=== PATIENT | female | born 1995 | race Caucasian/White ===

== ENCOUNTER 2016-10-25 13:35 | Outpatient (CLI) ==
[2016-10-25 14:17] LABS: BILIRUBIN,URINE Negative (NEGATIVE); KETONES,URINE Negative (NEGATIVE); LEUKOCYTE ESTERASE ,URINE Trace (NEGATIVE); NITRITE,URINE Negative (NEGATIVE); PROTEIN,URINE Negative (NEGATIVE); URINE, BLOOD Negative (NEGATIVE)
[2016-10-25 14:18] LABS: ADD URINE MICROSCOPIC YES
[2016-10-25 14:27] LABS: BACTERIA,URINE 1+ (NOT PRESENT)
== END 2016-10-25 13:36 | disposition home or self-care (01) ==
LOC: LAB 13:35
PROVIDERS: ATTEND Nurse Practitioner Family
DX: R31.9 Hematuria, unspecified (principal); R30.9 Painful micturition, unspecified
CPT/HCPCS: 81001; 87086; 87186; 87800

== ENCOUNTER 2016-12-05 13:20 | Outpatient (CLI) | END 2016-12-05 13:21 | disposition home or self-care (01) | LOC: LAB 13:20 | PROVIDERS: ATTEND Nurse Practitioner Family | DX: J02.9 Acute pharyngitis, unspecified (principal) | CPT/HCPCS: 87880 ==

== ENCOUNTER 2018-08-21 09:12 | Outpatient (CLI) | END 2018-08-21 09:13 | disposition home or self-care (01) | LOC: RHC-LAB 09:12 | PROVIDERS: ATTEND Nurse Practitioner Family | DX: R42 Dizziness and giddiness (principal); R25.1 Tremor, unspecified | CPT/HCPCS: 36415; 80053; 80061; 84443; 85025 ==

== ENCOUNTER 2018-09-11 09:24 | Outpatient (CLI) | END 2018-09-11 09:25 | disposition home or self-care (01) | LOC: RHC-LAB 09:24 | PROVIDERS: ATTEND Nurse Practitioner Family | DX: R79.89 Other specified abnormal findings of blood chemistry (principal) | CPT/HCPCS: 36415; 84436; 84439; 84443; 86376; 86800 ==

== ENCOUNTER 2018-12-30 15:53 | Emergency (ER) ==
[2018-12-30 15:58] VITALS: BP 127/81; TEMP 98.4; BMI 32.3
--- NOTE | 2018-12-30 16:22 | ED.PDOC ---
General ED Provider: Dr. ESTRELLA BAUER Chief Complaint: Respiratory Complaint Stated Complaint: cough congestion Time Seen by Physician: 16:00 Mode of Arrival: Walk-In Information Source: Patient Exam Limitations: No limitations Primary Care Provider: TAHMINA GARCIA Nursing and Triage Documentation Reviewed and Agree: Yes Does patient meet sepsis criteria?: No If yes, has appropriate treatment been initiated?: No System Inflammatory Response Syndrome: Not Applicable Sepsis Protocol: For patient's 13 years and over: Temp is 96.8 and below OR 101 and greater Pulse >90 BPM Resp >20/minute Acutely Altered Mental Status Are patient's symptoms suggestive of a new infection, such as: -Pneumonia -Skin, Soft Tissue -Endocarditis -UTI -Bone, Joint Infection -Implantable Device -Acute Abdominal Infection -Wound Infection -Meningitis -Blood Stream Catheter Infection -Unknown Respiratory Complaint Exam - Respiratory Complaint/Exam Symptoms Are: Resolved Timing: Intermittent Initial Severity: Moderate Location: Nose, Throat, Chest Character: Reports: Non-productive cough, Dry cough Aggravating: Reports: URI Alleviating: Reports: None Associated Signs and Symptoms: Reports: URI, Nasal congestion. Denies: Rapid breathing, Dyspnea, Fever, Chills, Chest pain, Pleuritic chest pain, Wheezing, Hemoptysis, Dizziness, Calf pain, Calf swelling, Edema, Hoarseness, Sinus discomfort, Vomiting, Sore throat, Weight loss, Decreased oral intake, Increased thirst, Increased appetite, Increased urination History of Healthcare-Acquired Pneumonia: No Related Surgical History: Reports: None Pulmonary Embolism Risk Factors: None Cardiac Risk Factors: Reports: None Pseudomonas Risk Factors: Reports: None Tuberculosis Risk Factors: Reports: None Status Asthmaticus Risk Factors: Reports: None Home Oxygen Use: No Recent Stress Test: No Recent Echo/LV Function: No Current Antibiotic Use: No Current Asthma Medication Use: No Respiratory Distress: None Inadequate Respiratory Effort: No Dysphagia Present: No JVD Present: No Accessory Muscle Use: No Retractions: Not Present Diminished Breath Sounds: No Sinus Tenderness: None Grunting Respirations: No Kussmaul Respirations: No Differential Diagnoses: Bronchitis Review of Systems - Review Of Systems Constitutional: Reports: No symptoms Eyes: Reports: No symptoms Ears, Nose, Mouth, Throat: Reports: No symptoms Respiratory: Reports: Cough Cardiac: Reports: No symptoms GI: Reports: No symptoms : Reports: No symptoms Musculoskeletal: Reports: No symptoms Skin: Reports: No symptoms Neurological: Reports: No symptoms Endocrine: Reports: No symptoms Hematologic/Lymphatic: Reports: No symptoms All Other Systems: Reviewed and Negative Past Medical History - Past Medical History Previously Healthy: Yes Endocrine: Reports: None Cardiovascular: Reports: None Respiratory: Reports: None Hematological: Reports: None Gastrointestinal: Reports: None Genitourinary: Reports: None Neuro/Psych: Reports: Anxiety, Depression Musculoskeletal: Reports: None Cancer: Reports: None Last Menstrual Period: last - Surgical History General Surgical History: Reports: None - Family History Family History: Reports: None - Social History Smoking Status: Never smoker Hx Substance Use: No Physical Exam - Physical Exam Appearance: Well-appearing, No pain distress, Well-nourished Eyes: SHERI, EOMI, Conjunctiva clear ENT: Ears normal, Nose normal, Oropharynx normal Respiratory: Airway patent, Breath sounds clear, Breath sounds equal, Respirations nonlabored Cardiovascular: RRR, Pulses normal, No rub, No murmur GI/: Soft, Nontender, No masses, Bowel sounds normal, No Organomegaly Musculoskeletal: Normal strength, ROM intact, No edema, No calf tenderness Skin: Warm, Dry, Normal color Neurological: Sensation intact, Motor intact, Reflexes intact, Cranial nerves intact, Alert, Oriented Psychiatric: Affect appropriate, Mood appropriate Critical Care Note - Critical Care Note Total Time (mins): 0 Course - Course Vital Signs: Temp Pulse Resp BP Pulse Ox 12/30/18 15:53 98.4 F 67 20 127/81 98 Departure - Departure Time of Disposition: 16:21 Disposition: HOME SELF-CARE Discharge Problem: Cough in adult Instructions: Chronic Cough (ED) Condition: Good Pt referred to PMD for follow-up: Yes IPMP verified?: No Additional Instructions: Please call your Family Physician as soon as possible to schedule a follow-up appointment. Prescriptions: Hydrocodone/Chlorphen Polis [Tussionex] 5 ml PO Q12H 5 Days disp.syrin Prednisone 40 mg PO DAILYWM #5 tablet Allergies/Adverse Reactions: Allergies Penicillins Allergy (Severe, Verified 12/30/18 15:58) Anaphylaxis Sulfa (Sulfonamide Antibiotics) Allergy (Severe, Verified 12/30/18 15:58) Anaphylaxis Latex, Natural Rubber Allergy (Intermediate, Verified 12/30/18 15:58) Rash sumatriptan [From Imitrex] Allergy (Verified 12/30/18 15:58) burning sumatriptan succinate [From Imitrex] Allergy (Verified 12/30/18 15:58) burning Home Medications: Ambulatory Orders Ibuprofen 800 mg PO PRN 06/14/18 Hydrocodone/Chlorphen Polis [Tussionex] 5 ml PO Q12H 5 Days disp.syrin Prednisone 40 mg PO DAILYWM #5 tablet 12/30/18
== END 2018-12-30 16:24 | disposition home or self-care (01) ==
LOC: ED 15:53
DX: R05 Cough (principal)
CPT/HCPCS: 99282

== ENCOUNTER 2019-01-14 19:27 | Emergency (ER) | payer MEDICAID ==
[2019-01-14 19:34] VITALS: BP 122/69; TEMP 99.1; BMI 33.0
--- NOTE | 2019-01-14 20:02 | ED.PDOC ---
General ED Provider: Dr. SHOAIB MILLIGAN Chief Complaint: Vaginal Discharge/Swelling Stated Complaint: Patient presents to the ER with Vaginal discharge that is clear with odor and itching, nausea and abd cramps. Last menstral period was about one month ago. Not sure if she is . States she is in a monogamous relationship. Time Seen by Physician: 19:59 Mode of Arrival: Walk-In Information Source: Patient Primary Care Provider: TAHMINA GARCIA Nursing and Triage Documentation Reviewed and Agree: Yes Does patient meet sepsis criteria?: No System Inflammatory Response Syndrome: Not Applicable Sepsis Protocol: For patient's 13 years and over: Temp is 96.8 and below OR 101 and greater Pulse >90 BPM Resp >20/minute Acutely Altered Mental Status Are patient's symptoms suggestive of a new infection, such as: -Pneumonia -Skin, Soft Tissue -Endocarditis -UTI -Bone, Joint Infection -Implantable Device -Acute Abdominal Infection -Wound Infection -Meningitis -Blood Stream Catheter Infection -Unknown Complaint Exam - Complaint/Exam Patient Complains of: Reports: Vaginal discharge, Pain, Dysuria Onset/Duration: 2 days Symptoms Are: Still present Timing: Constant Initial Severity: Moderate Current Severity: Moderate Location of Pain: Reports: Suprapubic Character: Reports: Cramping Alleviating: Reports: None Associated Signs and Symptoms: Reports: Dysuria, Bubble bath use, Vaginal discharge. Denies: Diaphoresis, Back pain, Fever, Hematuria, Constipation, Blood in stool, Rectal pain, Appetite change, Nausea, Vomiting, Decreased urine output, Increased urine frequency, Increased thirst, Decreased activity, Lethargy, Abdominal Pain, Vaginal bleeding, Genital swelling, Genital blisters, Retained foreign body Related History: Reports: Similar episode Ectopic Risk Factors: Reports: None Ovarian Torsion Risk Factors: Reports: None Surgical Obstruction Risk Factors: Reports: None RH Status: Unknown Related Surgical History: Reports: None Abdominal Findings: Present: Other (Mild suprapubic tendeness ). Absent: [place] tender Differential Diagnoses: Cervicitis, STD, UTI Review of Systems - Review Of Systems Constitutional: Reports: No symptoms Eyes: Reports: No symptoms Ears, Nose, Mouth, Throat: Reports: No symptoms Respiratory: Reports: No symptoms Cardiac: Reports: No symptoms GI: Reports: Nausea, Poor appetite, Vomiting : Reports: Dysuria, Discharge, Pain, Urgency Musculoskeletal: Reports: No symptoms Skin: Reports: No symptoms Neurological: Reports: Anxiety Endocrine: Reports: No symptoms Hematologic/Lymphatic: Reports: No symptoms All Other Systems: Reviewed and Negative Past Medical History - Past Medical History Previously Healthy: Yes Endocrine: Reports: Hyperthyroid Cardiovascular: Reports: None Respiratory: Reports: None Hematological: Reports: None Gastrointestinal: Reports: None Genitourinary: Reports: None Neuro/Psych: Reports: Anxiety, Depression Musculoskeletal: Reports: None Cancer: Reports: None Last Menstrual Period: 01/26/19 - Surgical History General Surgical History: Reports: Other (breast augmentation, D&C) - Family History Family History: Reports: None - Social History Smoking Status: Current every day smoker, Light tobacco smoker Hx Substance Use: No Alcohol Screening: None - Immunizations Tetanus Shot up to Date: Yes Physical Exam - Physical Exam Appearance: Well-appearing, No pain distress, Well-nourished Ill-appearing: Mild Neck: Supple Respiratory: Airway patent, Breath sounds clear, Breath sounds equal, Respirations nonlabored Cardiovascular: RRR, Pulses normal, No rub, No murmur GI/: Soft, Tender (mild suprapubic tenderness ) Skin: Warm, Dry Neurological: Alert, Oriented Psychiatric: Anxious Critical Care Note - Critical Care Note Total Time (mins): 0 Course - Course Orders, Labs, Meds: Lab Review 01/14/19 01/14/19 01/14/19 19:40 19:40 20:25 Urine Color Light Urine Clarity Clear Urine pH 7.0 Ur Specific [place] 1.010 Urine Protein Negative Urine Glucose (UA) Negative Urine Ketones Negative Urine Blood Negative Urine Nitrite Negative Urine Bilirubin Negative Urine Urobilinogen 0.2 Ur Leukocyte Esterase 1+ Urine Microscopic WBC 2-5 Ur Squamous Epith Cells 5-10 Urine Bacteria Trace Urine Test Negative Clue Cells (Wet Prep) None seen Trichomonas (Wet Prep) None seen Vaginal WBC None seen EMMA Preparation No fungal elements Orders Category Date Time Status CHLAMYDIA/GC AMPLIFICATION Stat LAB 01/14/19 20:25 Received GENITAL CULTURE Stat LAB 01/14/19 20:25 Received EMMA PREP Stat LAB 01/14/19 20:25 Completed URINALYSIS C & S IF INDICATED Stat LAB 01/14/19 19:40 Completed URINE Stat LAB 01/14/19 19:40 Completed WET PREP Stat LAB 01/14/19 20:25 Completed Vital Signs: Temp Pulse Resp BP Pulse Ox 01/14/19 19:29 99.1 F 83 20 122/69 97 Departure - Departure Time of Disposition: 20:42 Disposition: HOME SELF-CARE Discharge Problem: Vaginal discharge Urinary tract infection Qualifiers: Urinary tract infection type: acute cystitis Hematuria presence: without hematuria Qualified Code(s): N30.00 - Acute cystitis without hematuria Instructions: Urinary Tract Infection in Women (ED) Condition: Stable Pt referred to PMD for follow-up: Yes IPMP verified?: No Additional Instructions: Push fluids Take Medications as prescribed Follow up with PCP in 3 days Prescriptions: Nitrofurantoin Monohyd/M-Cryst [Macrobid] 100 mg PO BID #14 capsule Ondansetron [Zofran Odt] 4 mg PO Q8H #12 tab.rapdis Phenazopyridine HCl [Pyridium] 100 mg PO TID PRN #10 tablet PRN Reason: Urinary Burning. Allergies/Adverse Reactions: Allergies Penicillins Allergy (Severe, Verified 12/30/18 15:58) Anaphylaxis Sulfa (Sulfonamide Antibiotics) Allergy (Severe, Verified 12/30/18 15:58) Anaphylaxis Latex, Natural Rubber Allergy (Intermediate, Verified 12/30/18 15:58) Rash sumatriptan [From Imitrex] Allergy (Verified 12/30/18 15:58) burning sumatriptan succinate [From Imitrex] Allergy (Verified 12/30/18 15:58) burning Home Medications: Ambulatory Orders Ibuprofen 800 mg PO PRN 06/14/18 Prednisone 40 mg PO DAILYWM #5 tablet 12/30/18 Nitrofurantoin Monohyd/M-Cryst [Macrobid] 100 mg PO BID #14 capsule 01/14/19 Ondansetron [Zofran Odt] 4 mg PO Q8H #12 tab.rapdis 01/14/19 Phenazopyridine HCl [Pyridium] 100 mg PO TID PRN #10 tablet 01/14/19 Disposition Discussed With: Patient, Family
[2019-01-14 20:13] LABS: URINE PREGNANCY TEST NEGATIVE (NEGATIVE)
== END 2019-01-14 20:55 | disposition home or self-care (01) ==
LOC: ED 19:27
DX: N30.00 Acute cystitis without hematuria (principal); F17.210 Nicotine dependence, cigarettes, uncomplicated
CPT/HCPCS: 36415; 81001; 81025; 87070; 87210; 87800; 99283

== ENCOUNTER 2019-01-17 08:02 | Outpatient (CLI) ==
--- NOTE | 2019-01-17 09:53 | US ---
EXAM: Thyroid ultrasound History: Abnormal thyroid function tests. Technique: Multiple sonographic images through the thyroid gland were obtained. Color duplex Dopple r was used to interrogate vascular flow. Findings: The right lobe of the thyroid measures 6.2 cm x 3.0 cm x 1.9 cm and demonstrates a 1.6 cm solid nodul e within the mid to inferior pole. The thyroid isthmus measures 0.9 cm in thickness. The left lobe of the thyroid measures 6.2 cm x 2.5 cm x 2.0 cm and demonstrates a 0.3 cm benign cyst. No extrathyroidal masses are identified. The thyroid gland is not hypervascular. Impression: 1. Diffuse thyroid enlargement. 2. 1.6 cm solid nodule within the right thyroid lobe. Tissue sampling is recommended.
== END 2019-01-17 08:03 | disposition home or self-care (01) ==
LOC: RAD 08:02
PROVIDERS: ATTEND Nurse Practitioner
DX: R94.6 Abnormal results of thyroid function studies (principal)

== ENCOUNTER 2019-01-21 07:44 | Outpatient (CLI) ==
--- NOTE | 2019-01-21 13:45 | NM ---
Exam: Thyroid scintigraphy Data completed: 01/21/2019 Radiopharmaceutical: .292 mCi I-123 sodium iodide capsule administered orally after confirmation griffin t the patient was not with breast feeding. HISTORY: No report of radiation therapy or thyroid surgery. No iodinated contrast in the last 6 weeks. No report of thyroid medication Comparison: Ultrasound of the thyroid performed 01/17/2019 FINDINGS: Thyroid images obtained 4 hours after radiopharmaceutical administration demonstrate uniform activity and a gland of normal size and configuration. The previously described nodule in the right thyroid lobe is not well seen on this exam. 4 hour uptake measures 10.1 % which is outside of normal limits. The normal range up to 4 hours is 5% to 12%. Impression: Normal radiopharmaceutical uptake after 4 hours. 4 hour uptake measures 10.1 %.
== END 2019-01-21 07:45 | disposition home or self-care (01) ==
LOC: RAD 07:44
PROVIDERS: ATTEND Nurse Practitioner
DX: R94.6 Abnormal results of thyroid function studies (principal)